=== PATIENT | male | born 1955 | race Caucasian/White ===

== ENCOUNTER 2021-09-15 17:30 | Inpatient (IN) | payer OTHER, MEDICARE, SELFPAY ==
[2021-09-15] VITALS (8 sets, daily range): BP systolic 141–167; BP diastolic 65–73; PULSE 77–88; RESP 16–20; TEMP 35.9–36.7; O2SAT 88–95; BMI 30.8; BMI 30.5
--- NOTE | 2021-09-15 17:53 | EKG12_ITS ---
Test Reason : SOB Blood Pressure : / mmHG Vent. Rate : 084 BPM Atrial Rate : 084 BPM P-R Int : 144 ms QRS Dur : 076 ms QT Int : 410 ms P-R-T Axes : 053 026 047 degrees QTc Int : 484 ms Normal sinus rhythm Prolonged QT Abnormal ECG Confirmed by CRYSTAL WHITE, MYLENE ([id number]), department editor HERIBERTO URIBE ([id number]) on 09/17/2021 1:09:59 PM Referred By: LAUREN Confirmed By:ALINA ROJAS MD
--- NOTE | 2021-09-15 17:54 | EDS_ITS ---
HPI History of Present Illness Chief Complaint: Shortness of Breath Detail of Chief Complaint: Onset of illness August 26 please read HPI Informant: patient and spouse/S.O. Onset/Context/Timing Current Severity: Mild Maximum Severity: Moderate Worsened by: Dyspnea with exertion Relieved by: Dyspnea at rest Associated Symptoms Associated Symptoms: Intermittent fever, cough productive of white sputum and read HPI Narrative Narrative: Patient is an elderly male with multiple antibiotic allergies who was sent in by his primary care physician because of an infiltrate noted on outpatient chest x-ray. Infiltrate was on the left. Patient had onset of upper respiratory symptoms August 26. He had a positive Covid test August 30. He states he felt terrible. He does have history of autoimmune disorder and was told by [employer] not to get vaccine. Within the past week he had document temperatures up to 102.3. He had a persistent productive cough of white-colored sputum. He has a remote history of smoking. He denies rhinorrhea, congestion postnasal drainage. Denies sore throat. Denies loss of taste or smell. He states he has no energy. He denies headache, visual, ocular auditory symptoms. He denies neck pain or neck stiffness. He specifically denied photophobia. He denies rash. He is on Coumadin due to blood clot 1 year ago after 5-day stay for cardiac work-up at outside facility. He was scheduled to have his PT/INR checked last week but was unable. He denies any swelling of his right lower extremity or discoloration. He has noted swelling of his feet which are worse at night because he is not as active. Patient states he is not eating well. Has had decreased p.o. intake. He does endorse dry mouth and thirst. He also reports orthostatic symptoms if he rises from a sitting or supine position quickly. Prior similar symptoms: Yes Recent Illness/Hospitalization: Yes (COVID-19 infection) [facility] Medical History (Updated 09/15/21 @ 20:[address] Luis Enrique Kelley MD) Autoimmune disorder COVID-19 virus infection Allergy/AdvReac Type Severity Reaction Status Date / Time amoxicillin [From Augmentin] Allergy Other Verified 09/15/21 17:37 cephalexin Allergy Other Verified 09/15/21 17:37 Cephalosporins Allergy Other Verified 09/15/21 17:37 clavulanic acid Allergy Other Verified 09/15/21 17:37 clindamycin Allergy Other Verified 09/15/21 17:37 levofloxacin [From Levaquin] Allergy Other Verified 09/15/21 17:37 Macrolide Antibiotics Allergy Other Verified 09/15/21 17:37 NSAIDS (Non-Steroidal Allergy Other Verified 09/15/21 17:37 Anti-Inflamma Penicillins [PCN] Allergy Other Verified 09/15/21 17:37 Quinolones Allergy Other Verified 09/15/21 17:37 sulfamethoxazole Allergy Other Verified 09/15/21 17:37 [From Bactrim] trimethoprim [From Bactrim] Allergy Other Verified 09/15/21 17:37 KETOLIDES Allergy Other Uncoded 09/15/21 17:37 Social History (Updated 09/15/21 @ 17:[address] Luis Enrique Kelley MD) household members: spouse Smoking Status: Former smoker alcohol intake: never substance use type: does not use ROS ROS ED Constitutional Constitutional ED: Reports chills and fever(s); Denies subjective, sweats or weight loss Eyes Eyes: Denies blurry vision, change in vision or diplopia ENT ENT ED: Denies ear pain, rhinorrhea or sore throat Cardiovascular Cardiovascular: Denies chest pain, orthopnea, palpitations or paroxysmal nocturnal dyspnea Respiratory/Chest Respiratory/Chest: Reports cough, dyspnea, dyspnea on exertion and sputum; Denies orthopnea or paroxysmal nocturnal dyspnea Gastrointestinal Gastrointestinal: Denies abdominal pain, diarrhea, nausea or vomiting Genitourinary Genitourinary ED: Denies dysuria, hematuria or urinary frequency Musculoskeletal Musculoskeletal: Denies arthralgias, myalgias or neck pain Integumentary Denies abscess or rash Neurologic Neurologic: Reports weakness; Denies paresthesias Psychiatric Psychiatric: Denies anxiety or depression Endocrine Endocrinology: Denies polydipsia, polyphagia or polyuria Allergic/Immunologic Allergic/Immunologic ED: Denies urticaria EXAM Physical Exam Const Vital Signs: 09/15/21 17:31 09/15/21 18:39 09/15/21 18:43 Temperature 96.7 F L Temperature Source Temporal Pulse Rate 88 Respiratory Rate 16 Respiratory Depth Normal Respiratory Pattern Normal Blood Pressure 167/73 H Blood Pressure Mean 104 Pulse Ox 93 94 Oxygen Delivery Method Room Air Nasal Cannula Nasal Cannula Oxygen Flow Rate (L/min) 2 2 Positive well nourished and well developed; Negative for obese, cachectic, contractures or unkempt General Appearance ED: well developed and NAD; Negative for unkempt, cachectic, contractures, cyanotic, diaphoretic or pallor Nutritional Appearance: Negative for cachectic or obese HEENT Reports TM's clear and dry mucous membranes; Denies moist mucous membranes HEENT Narrative: Uvula midline. There is no erythema or exudate. Mucosa is dry. Ears normal. Nares patent with no drainage. Negative for trauma or tenderness Tympanic Membrane ED: Yes TM's clear Mouth ED: Yes dry mucous membranes Mouth: dry mucous membranes Eyes PERRL and EOMs intact bilaterally General Eye ED: Negative for pale conjunctiva or scleral icterus Neck no lymphadenopathy, supple and no JVD Chest Wall inspection of chest normal and palpation of chest normal Resp normal respiratory effort and No clear to auscultation bilaterally Auscultation: rales right base and left lower Cardio regular rate, regular rhythm, S1 normal heart sound, S2 normal heart sound and no murmurs GI normal to inspection, nondistended, normoactive bowel sounds and non-tender Palpation: soft Back/Spine no CVA tenderness Cervical Spine: Negative for cervical spine tenderness Thoracic Spine / Upper Back: Negative for thoracic spinal tenderness or paraspinal muscle tenderness Extremity normal to inspection General Extremety ED: Yes edema; Negative for tenderness General Extremity: edema Neuro oriented x3, CN's II-XII intact bilaterally and no sensory deficits noted Sensorium / Orientation: alert Motor Exam: strength 5/5 throughout Psych mental status grossly normal Appearance: Negative for unkempt Skin no rashes or lesions noted and no wounds General Skin Exam: Negative for jaundice or pallor MDM MDM MDM Narrative Medical decision making narrative: Clinically patient has pneumonia on the left. There is rales. Questionable egophony with no increased vocal fremitus on the right. This may represent Covid pneumonia versus bacterial infection. Appropriate work-up was undertaken which included chest x-ray, blood work including lactate and an ambulatory pulse ox Since patient hypoxic requiring oxygen hospitalist been called. We will treat with Rocephin azithromycin. He lists many allergies. His allergies are not allergies. They are palpitation, headache and vertigo they are not IgE mediated. Therefore will treat with Rocephin and azithromycin because of concern for post Covid bacterial infection. Lab Data Attestation: I reviewed the patient's lab results. Labs: Laboratory Results - last 24 hr 09/15/21 09/15/21 09/15/21 18:30 18:30 18:30 WBC 10.0 RBC 3.76 L Hgb 11.5 L Hct 35.2 L MCV 93.6 MCH 30.6 MCHC 32.7 RDW Std Deviation 46.2 H RDW Coeff of Brooke 13.4 Plt Count 502 H MPV 9.6 Immature Gran % (Auto) 1.100 H Neut % (Auto) 60.6 Lymph % (Auto) 18.0 L [place] % (Auto) 18.0 H Eos % (Auto) 1.7 Baso % (Auto) 0.6 Absolute Neuts (auto) 6.0 Absolute Lymphs (auto) 1.80 Nucleated RBC % 0 Differential Comment SCANNED PT 31.1 H INR 3.1 Sodium 136 Potassium 3.7 Chloride 102 Carbon Dioxide 26.0 Anion Gap 8 BUN 8 Creatinine 0.87 Estim Creat Clear Calc 98.42 Est GFR (MDRD) Af Amer 113 Est GFR (MDRD) Non-Af 93 BUN/Creatinine Ratio 9.2 L Glucose 116 H Lactic Acid Calcium 8.8 Total Bilirubin 1.00 AST 39 H ALT 36 Alkaline Phosphatase 40 L Total Protein 7.7 Albumin 3.0 L Globulin 4.7 H Albumin/Globulin Ratio 0.6 L 09/15/21 18:30 WBC RBC Hgb Hct MCV MCH MCHC RDW Std Deviation RDW Coeff of Brooke Plt Count MPV Immature Gran % (Auto) Neut % (Auto) Lymph % (Auto) [place] % (Auto) Eos % (Auto) Baso % (Auto) Absolute Neuts (auto) Absolute Lymphs (auto) Nucleated RBC % Differential Comment PT INR Sodium Potassium Chloride Carbon Dioxide Anion Gap BUN Creatinine Estim Creat Clear Calc Est GFR (MDRD) Af Amer Est GFR (MDRD) Non-Af BUN/Creatinine Ratio Glucose Lactic Acid 1.1 Calcium Total Bilirubin AST ALT Alkaline Phosphatase Total Protein Albumin Globulin Albumin/Globulin Ratio Radiography Chest X-Ray - ED: 2 View and Read by ED Physician (2 view chest x-ray interpreted by me at 1913. Patient has bilateral predominantly peripheral infiltrates. This may be due to Covid also need to raise concern of bacterial infection since his symptoms started 3 weeks ago. Since he is hypoxic requiring oxygen hospitalist has been called for admissi) Diagnostic Testing: Clinical Impression(s) from Imaging Studies Chest X-Ray 09/15/21 18:41 IMPRESSION: Bilateral pneumonia. Electronically Signed: David Perez MD at 19:18 EST Reading Location ID and State: [facility] / [place] , Service support , Discharge Plan Triage Chief Complaint: Shortness of Breath ED Provider: Luis Enrique Kelley Dx/Rx/DC Orders Clinical Impression: Bilateral pneumonia, COVID-19 virus infection, Hypoxia Primary Care Provider: Andrea Singh Referrals: Andrea Singh MD [Primary Care Provider] - Disposition Disposition: Acute Care Hospital [facility]
--- NOTE | 2021-09-15 18:41 | RAD_ITS ---
STUDY: XR Chest 2 Views 09/15/2021 6:46 PM REASON FOR EXAM: Male, 66 years old. CHEST PAIN Covid recovered, rales left side COMPARISON: None TECHNIQUE: XR Chest 2 Views FINDINGS: There is no demonstrated pleural abnormality. There is bilateral infiltrate / atelectasis. Normal heart size. Normal mediastinum. Normal tanya. Prominent appearing increased interstitial lung markings. Normal visualized pulmonary arteries. There is atherosclerotic calcification of the aortic arch with tortuosity. There are diffuse degenerative changes of the visualized thoracic spine. There is degenerative osteoarthritis of the bilateral shoulders. There is no demonstrated abnormality of the visualized soft tissue structures of the upper abdomen. RAD/Chest PA and Lateral IMPRESSION: Bilateral pneumonia. Electronically Signed: David Perez MD at 19:18 EST ,
[2021-09-15 18:48] LABS: Basophil# 0.06 X10^3/uL; Basophil% 0.6 % (0-1); Eosinophil# 0.17 X10^3/uL; Eosinophils% 1.7 % (0-5); Hematocrit 35.2 % (40-54); Hemoglobin 11.5 g/dL (13.0-16.5); Mean Corp Hgb Conc 32.7 g/dL (32-36); Mean Corpuscular Hgb 30.6 pg (27.0-32.0); Mean Corpuscular Volume 93.6 fL (80-94); Mean Platelet Vol. 9.6 fl (6.2-12.0); NRBC Flagged by Analyzer 0 % (0-5); Neutrophil # 6.04 X10^3/uL (2.7-7.7); Neutrophil % 60.6 % (47-70); POSITIVE DIFFERENTIAL YES; POSITIVE MORPHOLOGY YES; Platelet Count 502 K/mm3 (150-450); RBC Distribution Width CV 13.4 % (11.6-14.6); RBC Distribution Width SD 46.2 fl (35.1-43.9); Red Blood Count 3.76 M/mm3 (4.6-6.2)
[2021-09-15 19:02] LABS: Differential Indicated SCAN CRITERIA MET
[2021-09-15 19:06] LABS: ALB/GLOB Ratio 0.6 RATIO (0.9-2.4); AST(SGOT) 39 U/L (15-37); Alanine Aminotransfer ALT/SGPT 36 U/L (16-61); Alkaline Phosphatase 40 U/L (45-117); Anion Gap 8 (5-15); BUN 8 mg/dL (7-18); BUN/Creat Ratio 9.2 RATIO (10-20); Calcium,Total 8.8 mg/dL (8.5-10.1); Chloride 102 mmol/L (98-107); Creatinine, Serum 0.87 mg/dL (0.70-1.30); EST Glomerular Filtration Rate 93 mL/min (>60); Est Glom Filt Rate - Afr Amer 113 mL/min (>60); Estimated Creatinine Clearance 98.42 ml/min; Globulin 4.7 g/dL (2.2-4.2); Glucose 116 mg/dL (74-106); Potassium 3.7 mmol/L (3.5-5.1); Protein, Total 7.7 g/dL (6.4-8.2); Sodium Level 136 mmol/L (136-145)
[2021-09-15 19:10] LABS: Lactic Acid 1.1 mmol/L (0.4-1.9)
[2021-09-15 19:16] LABS: International Normalized Ratio 3.1; Prothrombin Time (Protime)PT. 31.1 SECONDS (11.7-14.9)
[2021-09-15 19:35] LABS: Differential Comment SCANNED
--- NOTE | 2021-09-15 20:01 | HP.PCM.HOS_ITS ---
HPI - General General Date of Admission: 09/15/21 Date of Service: 09/15/21 Chief Complaint: COVID symptoms, worsening. 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 Patient has poor recent oral intake and does feel lightheaded and dizzy when he gets up from a seated or supine position. He notes that his has also had Covid and has been hospitalized. Only symptoms he notes through the entire course has been fever, chills, cough and dyspnea. Work-up in the ED included T 96.7, heart rate 88, BP 167/73, respiratory rate 16, 88-93 on room air, worse with exertion, improved to 94% on 2 L nasal cannula, CBC with WC 10, hemoglobin 11.5, platelet 502 without marked shift, INR 3.1, CMP with glucose 116, AST/ALT 39/36, alk phos 40 otherwise not marked appearing, lactic acid 1.1, chest x-ray evidence of bilateral pneumonia, EKG with SR without acute evidence of ischemia. In the ED patient administered IV rocephin, azithromycin, decadron. [facility] Medical History Allergic rhinitis Autoimmune disorder COVID-19 virus infection DVT (deep venous thrombosis) Obesity Smoking history Home Medications dapsone 100 mg PO DAILY 09/15/21 [History Last Taken 09/15/21] warfarin 2.5 mg PO MOFR 09/15/21 [History Last Taken 09/13/21] warfarin 5 mg PO SUTUWETHSA 09/15/21 [History Last Taken 09/13/21] Allergy/AdvReac Type Severity Reaction Status Date / Time amoxicillin [From Augmentin] Allergy Other Verified 09/15/21 17:37 cephalexin Allergy Other Verified 09/15/21 17:37 Cephalosporins Allergy Other Verified 09/15/21 17:37 clavulanic acid Allergy Other Verified 09/15/21 17:37 clindamycin Allergy Other Verified 09/15/21 17:37 levofloxacin [From Levaquin] Allergy Other Verified 09/15/21 17:37 Macrolide Antibiotics Allergy Other Verified 09/15/21 17:37 NSAIDS (Non-Steroidal Allergy Other Verified 09/15/21 17:37 Anti-Inflamma Penicillins [PCN] Allergy Other Verified 09/15/21 17:37 Quinolones Allergy Other Verified 09/15/21 17:37 sulfamethoxazole Allergy Other Verified 09/15/21 17:37 [From Bactrim] trimethoprim [From Bactrim] Allergy Other Verified 09/15/21 17:37 KETOLIDES Allergy Other Uncoded 09/15/21 17:37 Family History (Updated 09/15/21 @ 23:[address] Kalina Lazaro MD) Mother Diabetes Father Kidney disease Surgical History (Updated 09/15/21 @ 23:[address] Kalina Lazaro MD) No history of previous surgery Social History (Updated 09/15/21 @ 23:[address] Kalina Lazaro MD) household members: spouse Smoking Status: Former smoker how long ago did patient quit smoking: Quit 13-15 yrs prior, smoked 1 pk q 3-4 days since 20 y/o. alcohol intake: never substance use type: does not use ROS ROS Narrative Admission Review of Systems: CONSTITUTIONAL: No weight loss, + fever, chills, weakness or fatigue. HEENT: Eyes: No visual loss, blurred vision, double vision or yellow sclerae. Ears, Nose, Throat: No hearing loss, sneezing. SKIN: No rash or itching, lesions, wounds. CARDIOVASCULAR: No chest pain, chest pressure or chest discomfort, palpitations, edema, orthopnea, syncopal events. RESPIRATORY: + Shortness of breath, cough, mild sputum, No wheezing, hemoptysis. GASTROINTESTINAL: No anorexia, nausea, vomiting, diarrhea, abdominal pain, melena, BRBPR. GENITOURINARY: No dysuria, frequency, urgency or retention. NEUROLOGICAL: + LH, dizziness, No headache, syncope, paralysis, ataxia, numbness or tingling in the extremities, focal weakness, change in bowel or bladder control, seizure. MUSCULOSKELETAL: + Muscle, back pain, joint pain or stiffness. HEMATOLOGIC: No anemia, bleeding or bruising. LYMPHATICS: No enlarged nodes. No history of splenectomy. PSYCHIATRIC: No history of depression or anxiety. ENDOCRINOLOGIC: No reports of sweating, cold or heat intolerance. No polyuria or polydipsia. ALLERGIES: No history of asthma, hives, eczema or rhinitis. Vital Signs Vital Signs Vital Signs: 09/15/21 17:31 09/15/21 18:39 09/15/21 18:43 Temperature 96.7 F L Temperature Source Temporal Pulse Rate 88 Respiratory Rate 16 Respiratory Depth Normal Respiratory Pattern Normal Blood Pressure 167/73 H Blood Pressure Mean 104 Pulse Ox 93 94 Oxygen Delivery Method Room Air Nasal Cannula Nasal Cannula Oxygen Flow Rate (L/min) 2 2 Weight Weight: 240 lb Body Mass Index (BMI) 30.8 Physical Exam Narrative Physical Examination: General: Awake, alert, oriented x 3 and cooperative, seated upright in the ED bed, fatigued and ill-appearing. Skin: Normal color, normal turgor, no icterus, no cyanosis. HEENT: AT/NC, EOMI, PERRLA, moderately dry MM, no carotid bruits or JVD noted. Lungs: Diffusely diminished, greater bases, no evidence of distress, no rales, ronchi or wheezing. Heart: Regular rate and regular rhythm; no gallop, rub audible. Abdomen: Soft, obese, NTTP, ND, distant hyperactive bowel sounds, no HSM. Extremities: No cyanosis, clubbing, or edema. Neurological: Patient awake, alert, oriented as noted, cognitive function intact; pupils equally reactive to light and accommodation, cranial nerves II- XII grossly normal, moving all 4 extremities, no focal deficits, strength severely global decrease secondary to acute presentation. Psychiatric: Affect appears fatigued, ill-appearing, no acute evidence of depressive or anxiety feelings. Results Lab / Micro Data Result Diagrams: 09/15/21 18:30 09/15/21 18:30 Labs: Laboratory Results - last 24 hr 09/15/21 18:30: WBC 10.0, RBC 3.76 L, Hgb 11.5 L, Hct 35.2 L, MCV 93.6, MCH 30.6, MCHC 32.7, RDW Std Deviation 46.2 H, RDW Coeff of Brooke 13.4, Plt Count 502 H, MPV 9.6, Immature Gran % (Auto) 1.100 H, Neut % (Auto) 60.6, Lymph % (Auto) 18.0 L, [place] % (Auto) 18.0 H, Eos % (Auto) 1.7, Baso % (Auto) 0.6, Absolute Neuts (auto) 6.0, Absolute Lymphs (auto) 1.80, Nucleated RBC % 0, Differential Comment SCANNED 09/15/21 18:30: PT 31.1 H, INR 3.1 09/15/21 18:30: Sodium 136, Potassium 3.7, Chloride 102, Carbon Dioxide 26.0, A nion Gap 8, BUN 8, Creatinine 0.87, Estim Creat Clear Calc 98.42, Est GFR (MDRD) Af Amer 113, Est GFR (MDRD) Non-Af 93, BUN/Creatinine Ratio 9.2 L, Glucose 116 H , Calcium 8.8, Total Bilirubin 1.00, AST 39 H, ALT 36, Alkaline Phosphatase 40 L , Total Protein 7.7, Albumin 3.0 L, Globulin 4.7 H, Albumin/Globulin Ratio 0.6 L 09/15/21 18:30: Lactic Acid 1.1 Radiology Impression Chest X-Ray 09/15/21 18:41 IMPRESSION: Bilateral pneumonia. Electronically Signed: David Perez MD at 19:18 EST Reading Location ID and State: 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 #1. Acute Hypoxia secondary to Acute Bilateral Pneumonia secondary to Acute Viral Syndrome, COVID-19, some concern for possible concurrent superimposed ashly terial infection per ED physician: Will admit to the [place], maintain on COVID precautions given severity will request 20 days quarantine from onset 08/26/21 symptoms which would be completed 09/16/20, will maintain on oxygen with wean as tolerated to room air, PRN albuterol, HOB, IS parameters w/ pending sputum cultures and urine antigens, will obtain D-dimer, procalcitonin, CRP, CPK, Ferritin, LDH, trop and BNP, continue supportive care including q 2 hour turning including prone given no prone bed availability and judicious hydration, closely monitor for worsening status for ARDS and multiorgan failure, will initiate and continue IV decadron x 10 doses, given presentation timeline > 10 days from onset not candidate for remdesivir. If lab findings and further evaluation do present concern for superimposed bacterial infection will add IV antibiotic therapy, was administered dose in the ED. If respiratory status worsens and patient requires airvo or BIPAP transition will initiate barcitinib regimen additionally with ID involvement. #2. Autoimmune disorder: Unclear type, following w/ Rheumatology, on chronic dapsone which will be continued. #3. 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 #4. Obesity: Weight loss and lifestyle changes encouraged. #5. Former tobacco use: Encourage continued tobacco cessation. #6. DVT prophylaxis: SCDs, continue patient home Coumadin with INR trending. #7. CODE status: Given presentation with hypoxia with Covid pneumonia and unvaccinated status, discussed CODE status at length including difference between FULL code, DNR-CCA and DNR-CC status. Following discussions about the differences in these status, requested Full Code. Amenable to airvo, BIPAP, antiviral medications if appropriate. Advanced Care Planning Face to Face Time: 16 minutes. Charges/Coding Visit Charges Inpatient E&M: 11635 Init Hosp L3 Procedures Hospitalists Procedures: 16547 Advncd Care Plan 30 Min
[2021-09-15] MEDS: dexAMETHasone 4 MG Tablet 6 MG PO (20:12)
--- NOTE | 2021-09-15 20:30 | CASEMGMT ---
PERICO CM to room to meet with patient for initial transition planning/care coordination assessment. RN CM introduced self and role at [facility]. Patient voices understanding and consents to assessment at this time. Patient is alert and oriented, sitting up on ER cart with oxygen 2LPM per NC in no apparent distress and answers all questions appropriately. Care providers, pharmacy, and demographics verified/updated at this time. PCP: Andrea Singh Specialists: Dr. Mckeon- dermatology ([facility]) Preferred Pharmacy: [facility] [place] Insurance: [employer] Prescription Benefit: yes Living Will/HPOA: Patient denies having a living will or HPOA. LNOK: Gilma Dunne Living Arrangements: Patient lives with in two story house with 3 steps to enter the home and a handrail present. Patient states independent with ADLs prior to hospitalization. Smoking/ETOH: Former smoker (quit 15 years ago), denies ETOH or drug use Transportation: Patient drives self and denies transportation concerns. DME/HHC/SNF: Patient typically ambulates independently without the use of an assistive device. Patient has a pulse oximetry monitor at home. Denies further DME in the home. Denies previous HHC or SNF stays. Patient reports onset of COVID-like symptoms on 08/26 or 08/27/2021 with a positive home COVID test on 08/31/21. Patient is unvaccinated against COVID due to autoimmune disease. Patient's is currently hospitalized with COVID at [facility] in [place] (as of 09/15). Patient has no preference for DME company if home oxygen were to be needed at time of discharge. Patient has no concerns with going home at time of discharge. CM to follow for any discharge planning/needs. Patient voices no concerns/needs at this time. Advised patient to ask for CM if any questions/concerns/needs arise. Voices understanding. Plan: home
[2021-09-15 21:25] LABS: D-Dimer Quantitative (DVT/PE) 0.48 FEU/ug/m (0.27-0.49)
[2021-09-15 21:33] LABS: BNP,B-Type NATRIURETIC PEPTIDE 37.8 pg/mL (0-100)
[2021-09-15] MEDS: 0.9% Normal Saline 1,000 ML 100 ML IV (21:35)
[2021-09-15 21:42] LABS: Procalcitonin 0.18 ng/mL (0.00-0.09)
[2021-09-15 21:51] LABS: Ferritin 1379 ng/mL (26-388); LDH 423 U/L (87-241); Troponin-I HS 270 pg/mL (3.0-78.0)
[2021-09-16] VITALS (12 sets, daily range): BP systolic 106–156; BP diastolic 59–79; PULSE 67–97; RESP 18–20; TEMP 35.9–36.4; O2SAT 92–95
[2021-09-16 00:39] LABS: Magnesium 2.4 mg/dL (1.6-2.6); Troponin-I HS 268 pg/mL (3.0-78.0)
--- NOTE | 2021-09-16 02:06 | ECHOD_ITS ---
Reason For Study: ELEVATED TROPONIN Procedure This was a 2D Doppler, Color Flow transthoracic echocardiogram. Exam performed portable in patient room. Left Ventricle Normal LV size. sigmoid septal hypertrophy. The estimated ejection fraction is 60 %. No evidence for diastolic dysfunction. No regional wall motion abnormalities noted. Right Ventricle Normal RV size. Normal systolic function. Atria The left atrium is mildly enlarged. Normal right atrium. No doppler evidence for ASD. Mitral Valve There is no mitral valve stenosis. No mitral valve insufficiency. Tricuspid Valve No significant tricuspid stenosis. Unable to estimate RV systolic pressure due to insufficient tricuspid regurgitant envelope. Trivial tricuspid valve insufficiency. Aortic Valve Trisinus/trileaflet aortic valve. There is no aortic stenosis. No aortic valve insufficiency. Pulmonic Valve There is no pulmonic valvular stenosis. No pulmonic valve insufficiency. Great Vessels Normal aortic root. Pericardium/Pleural No pericardial effusion. MMode/2D Measurements & Calculations LVIDd: 4.5 cm IVSd: 2.1 cm Ao root diam: 3.5 cm LVIDs: 3.1 cm LVPWd: 1.2 cm RVDd: 4.0 cm FS: 30.5 % LAV(MOD-bp): 87.8 ml LA A4 area: 26.6 cm2 LA dimension(2D): 3.3 cm LAV(MOD-bp) Indexed: 37.6 ml/m2 LAV(MOD-sp2): 84.2 ml LAV(MOD-sp4): 89.7 ml RA A4 area: 20.3 cm2 Time Measurements MV dec time: 0.17 sec Doppler Measurements & Calculations MV E max devante: 98.6 cm/sec Lat Peak E' Devante: 11.0 cm/sec MV V2 max: 165.8 cm/sec MV A max devante: 150.7 cm/sec E/E' lat: 9.0 MV max P.0 mmHg MV E/A: 0.65 MV V2 mean: 108.7 cm/sec MV mean P.3 mmHg MV V2 VTI: 29.7 cm Ao V2 max: 257.0 cm/sec PA V2 max: 155.0 cm/sec TR max devante: 264.1 cm/sec Ao max P.4 mmHg TR max P.9 mmHg Ao V2 mean: 200.5 cm/sec Ao mean P.4 mmHg Ao V2 VTI: 51.5 cm ECHO/Echo Complete Interpretation Summary The estimated ejection fraction is 60 %. No evidence for diastolic dysfunction. The left atrium is mildly enlarged. Ordering Physician: Kalina Lazaro Referring Physician: Andrea Singh Performed By: Nikki Segal, QIAN, RVT
[2021-09-16] MEDS: guaiFENesin 10 ML UDC (200MG/10ML) 20 ML PO (02:39)
[2021-09-16 02:50] LABS: Troponin-I HS 256 pg/mL (3.0-78.0)
[2021-09-16 05:42] LABS: Absolute Lymphocyte Count 0.81 X10^3/uL (0.83-4.51); Absolute Neutrophil Count 6.7 X10^3/uL (2.0-7.7); Basophil# 0.01 X10^3/uL; Basophil% 0.1 % (0-1); Hematocrit 33.4 % (40-54); Hemoglobin 10.7 g/dL (13.0-16.5); Lymphocyte # 0.81 X10^3/ul (0.83-4.51); Lymphocyte % 10.3 % (19-41); Mean Corpuscular Hgb 30.7 pg (27.0-32.0); Mean Platelet Vol. 9.4 fl (6.2-12.0); Monocyte# 0.34 X10^3/uL; Monocyte% 4.3 % (0-10); NRBC Flagged by Analyzer 0 % (0-5); Neutrophil # 6.68 X10^3/uL (2.7-7.7); Neutrophil % 84.5 % (47-70); POSITIVE MORPHOLOGY YES; Platelet Count 464 K/mm3 (150-450); RBC Distribution Width CV 13.6 % (11.6-14.6); RBC Distribution Width SD 47.6 fl (35.1-43.9); Red Blood Count 3.48 M/mm3 (4.6-6.2); White Blood Count 7.9 K/mm3 (4.4-11.0)
[2021-09-16 05:51] LABS: Differential Indicated SCAN CRITERIA MET
[2021-09-16 06:03] LABS: ALB/GLOB Ratio 0.6 RATIO (0.9-2.4); AST(SGOT) 30 U/L (15-37); Alanine Aminotransfer ALT/SGPT 33 U/L (16-61); Albumin, Serum 2.6 g/dL (3.2-5.0); Alkaline Phosphatase 37 U/L (45-117); Anion Gap 3 (5-15); BUN 6 mg/dL (7-18); BUN/Creat Ratio 8.1 RATIO (10-20); Calcium,Total 8.6 mg/dL (8.5-10.1); Chloride 108 mmol/L (98-107); Cholesterol 123 mg/dL (200); Creatinine, Serum 0.74 mg/dL (0.70-1.30); EST Glomerular Filtration Rate 112 mL/min (>60); Est Glom Filt Rate - Afr Amer 136 mL/min (>60); Estimated Creatinine Clearance 115.71 ml/min; Globulin 4.5 g/dL (2.2-4.2); Glucose 178 mg/dL (74-106); High Density Lipoprotein 27 mg/dL; Potassium 5.5 mmol/L (3.5-5.1); Protein, Total 7.1 g/dL (6.4-8.2); Sodium Level 139 mmol/L (136-145); Triglycerides 73 mg/dL; Troponin-I HS 233 pg/mL (3.0-78.0); Very Low Density Lipoprotein 15 mg/dL (5-40)
[2021-09-16 06:08] LABS: International Normalized Ratio 2.9; Prothrombin Time (Protime)PT. 29.7 SECONDS (11.7-14.9)
--- NOTE | 2021-09-16 07:14 | PN.HOSP_ITS ---
Subjective Subjective Follow-up for acute hypoxic respiratory failure secondary to bilateral COVID-19 pneumonia. Patient admitted with shortness of breath, cough, fever, 102.3 within the past week. Patient has symptom onset with URI on August 26 and positive Covid test on August 31. Persistent productive of white-colored sputum. Remote history of smoking. Patient stated he quit about 10 years ago. Prior to that 1 pack used to last 4 days. Started in teenage total smoking recently less than 10 years. Patient stated he could not get vaccination because autoimmune disease. Denies chest pain or tightness. Objective Data Objective Data Vital Signs: Vital Signs Temp Pulse Resp BP Pulse Ox 97.3 F L 71 20 H 106/79 94 09/16/21 02:55 09/16/21 06:00 09/16/21 02:55 09/16/21 02:55 09/16/21 02:55 Oxygen Flow Rate (L/min) 2 Oxygen Delivery Method Nasal Cannula Weight: 235 lb 14.314 oz Body Mass Index (BMI) 30.5 Intake & Output: Intake and Output for Last 24 Hours 09/14/21 09/15/21 09/16/21 23:59 23:59 23:59 Intake Total 805 / 805 400 / 400 Output Total 750 / 750 Balance 805 / 805 -350 / -350 Lab / Micro Data Result Diagrams: 09/16/21 05:20 09/16/21 05:20 Labs: Laboratory Results - last 24 hr 09/15/21 18:30: WBC 10.0, RBC 3.76 L, Hgb 11.5 L, Hct 35.2 L, MCV 93.6, MCH 30.6, MCHC 32.7, RDW Std Deviation 46.2 H, RDW Coeff of Brooke 13.4, Plt Count 502 H, MPV 9.6, Immature Gran % (Auto) 1.100 H, Neut % (Auto) 60.6, Lymph % (Auto) 18.0 L, [place] % (Auto) 18.0 H, Eos % (Auto) 1.7, Baso % (Auto) 0.6, Absolute Neuts (auto) 6.0, Absolute Lymphs (auto) 1.80, Nucleated RBC % 0, Differential Comment SCANNED 09/15/21 18:30: PT 31.1 H, INR 3.1 09/15/21 18:30: Sodium 136, Potassium 3.7, Chloride 102, Carbon Dioxide 26.0, Anion Gap 8, BUN 8, Creatinine 0.87, Estim Creat Clear Calc 98.42, Est GFR (MDRD) Af Amer 113, Est GFR (MDRD) Non-Af 93, BUN/Creatinine Ratio 9.2 L, Glucose 116 H, Calcium 8.8, Total Bilirubin 1.00, AST 39 H, ALT 36, Alkaline Phosphatase 40 L, Total Protein 7.7, Albumin 3.0 L, Globulin 4.7 H, Albumin/Globulin Ratio 0.6 L 09/15/21 18:30: Lactic Acid 1.1 09/15/21 18:30: D-Dimer Quant (PE/DVT) 0.48 09/15/21 18:30: Ferritin 1379 H, Lactate Dehydrogenase 423 H, Troponin I High Sens 270 H*, C-React Prot Ext Range 71.60 H 09/15/21 18:30: B-Natriuretic Peptide 37.8 09/15/21 18:30: Procalcitonin 0.18 H 09/15/21 23:45: Magnesium 2.4, Troponin I High Sens 268 H* 09/16/21 01:54: Troponin I High Sens 256 H* 09/16/21 05:20: WBC 7.9, RBC 3.48 L, Hgb 10.7 L, Hct 33.4 L, MCV 96.0 H, MCH 30.7, MCHC 32.0, RDW Std Deviation 47.6 H, RDW Coeff of Brooke 13.6, Plt Count 464 H, MPV 9.4, Immature Gran % (Auto) 0.800, Neut % (Auto) 84.5 H, Lymph % (Auto) 10.3 L, [place] % (Auto) 4.3, Eos % (Auto) 0.0, Baso % (Auto) 0.1, Absolute Neuts (auto) 6.7, Absolute Lymphs (auto) 0.81 L, Nucleated RBC % 0 09/16/21 05:20: PT 29.7 H, INR 2.9 09/16/21 05:20: Sodium 139, Potassium 5.5 H, Chloride 108 H, Carbon Dioxide 28.0, Anion Gap 3 L, BUN 6 L, Creatinine 0.74, Estim Creat Clear Calc 115.71, Est GFR (MDRD) Af Amer 136, Est GFR (MDRD) Non-Af 112, BUN/Creatinine Ratio 8.1 L, Glucose 178 H, Calcium 8.6, Total Bilirubin 0.60, AST 30, ALT 33, Alkaline Phosphatase 37 L, Troponin I High Sens 233 H*, Total Protein 7.1, Albumin 2.6 L, Globulin 4.5 H, Albumin/Globulin Ratio 0.6 L, Triglycerides 73, Cholesterol 123, LDL Cholesterol 81, VLDL Cholesterol 15, HDL Cholesterol 27 L Micro: Microbiology 09/15/21 21:53 Urine, Clean Catch Legionella Antigen - Final 09/15/21 21:53 Urine, Clean Catch Streptococcus pneumoniae Antigen (M - Final Radiography Diagnostic Testing: Radiology Impression Chest X-Ray 09/15/21 18:41 IMPRESSION: Bilateral pneumonia. Electronically Signed: David Perez MD at 19:18 EST Reading Location ID and State: [address] [place] [address] , Service support , Physical Exam Narrative Afebrile since admission On 2 L of oxygen Physical exam: General: Alert, Oriented x3, Cooperative HEENT: Atraumatic, PERRLA, EOMI, Normocephalic Oral: No Gingival or Mucosal Lesions/ Ulcerations Neck: Supple, No JVD, Negative Carotid Bruits Lungs: Air entry diminished in bilateral lung bases. No crepitation/rhonchi Cardiovascular: Regular rate, Regular Rhythm, Normal S1, Normal S2, grade 3/6 systolic murmur over cardiac apex and LLSB Abdomen: Bowel Sounds Present, Soft, Non Tender, Non-Distended : No renal angle tenderness. No suprapubic tenderness. Extremities: No edema, Capillary Refill Less than 3 Seconds Skin: No rashes, No breakdown Musculoskeletal: No Tenderness to Palpation of Joints or Extremities Neurological: Cranial nerves II-XII grossly intact, DTR 2+/4 and Symmetrical, Neuro grossly intact Psych/Mental Status: Normal Affect, Appropriate. Assessment & Plan Assessment/Plan (1) Bilateral pneumonia: QUALIFIERS: Lung location: unspecified part of lung Pneumonia type: due to unspecified organism Qualified Code(s): J18.9 - Pneumonia, unspecified organism (2) COVID-19 virus infection: (3) Hypoxia: PLAN: The patient is a 66 y/o M is being admitted with COVID-19 symptoms of shortness of breath, cough, hypoxia, fever and dyspnea at rest. Symptom onset on 08/26-02/2022, tested positive on August 31. Patient had chest x-ray by PCP showed a small pneumonia and low pulse ox cyst hypoxia #1. Acute Hypoxia secondary to Acute Bilateral Pneumonia secondary to Acute Viral Syndrome, COVID-19: Patient is being admitted on [facility] floor. Chest x- ray individually reviewed and shows bilateral interstitial and infiltrates and symptomatology consistent with bilateral pneumonia. Urinary antigens are negative. Sputum culture pending. D-dimer normal. INR 2.9 on Coumadin. Troponin, CRP, procalcitonin elevated. Dexamethasone. Out of time window for remdesivir. If patient further he spikes temperature, will consider antibiotics for coverage of secondary bacterial infection. The patient is out of isolation. #2. Elevated troponin possible type II demand ischemia/non-STEMI: Patient is having 2D echo. I discussed with learning strategist. Patient had echo probably by PCP about 1 to 2 years ago when he had a PE. He was told that he has enlarged/muscular heart probably referring to LVH. 3 autoimmune disorder: Patient states he gets blood blister on the inner aspect of mouth. Exact diagnosis unclear. 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 On chronic dapsone, continued. 4. 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 INR therapeutic. Monitor INR daily. 5. Obesity: Weight loss and lifestyle changes encouraged. 6. Former tobacco use: Encourage continued tobacco cessation. #6. CODE status: Full Code. Amenable to airvo, BIPAP, antiviral medications if appropriate. Advanced Care Planning Face to Face Time: 16 minutes. Charges/Coding Visit Charges Inpatient E&M: 83985 Subs Hosp L2
[2021-09-16 08:01] LABS: Magnesium 2.4 mg/dL (1.6-2.6); Phosphorus 2.5 mg/dL (2.5-4.9)
[2021-09-16] MEDS: 0.9% Saline Lock 10 ML Syringe IV (08:24)
[2021-09-16] MEDS: Aspirin 81 MG TAB.CHEW PO (08:24)
[2021-09-16] MEDS: dexAMETHasone 4 MG/ML Vial 6 MG IV (08:24)
--- NOTE | 2021-09-16 08:28 | PCS.PANDOC ---
PANDEMIC DOCUMENTATION INITIATED: Date: 04/05/2021 Time: 190
--- NOTE | 2021-09-16 11:59 | CON.PCM.CA_ITS ---
Assessment & Plan Assessment/Plan (1) Elevated troponin: PLAN: Likely related to patient's hypoxemia. His 2D echo was reviewed and he has no significant regional wall motion abnormalities. At this time patient does not need any further cardiac work-up as an inpatient. As an outpatient he can be scheduled for a stress test when he is recovered from his Covid pneumonia. It will be reasonable to get the patient on aspirin in addition to his Coumadin. We will sign off at this time. If we can be of any further as sistance please let us know. Thank you very much for letting us participate in the care of this patient. HPI Consult Data Date of Consult: 09/16/21 HPI Narrative HPI Narrative: RAKESH ROBERSON, is a 66 M who presents with dyspnea and hypoxemia. He denies any chest pain. Patient symptoms started around August 26 and he was diagnosed with Covid at that time. He has been diagnosed with Covid pneumonia. He did not have any symptoms prior to that. Review of systems: All systems reviewed. All else is negative except as in HPI. PFSH Medical History Allergic rhinitis Autoimmune disorder COVID-19 virus infection DVT (deep venous thrombosis) Obesity Smoking history Home Medications dapsone 100 mg PO DAILY 09/15/21 [History Last Taken 09/15/21] warfarin 2.5 mg PO MOFR 09/15/21 [History Last Taken 09/13/21] warfarin 5 mg PO SUTUWETHSA 09/15/21 [History Last Taken 09/13/21] Allergy/AdvReac Type Severity Reaction Status Date / Time amoxicillin [From Augmentin] Allergy Other Verified 09/15/21 17:37 cephalexin Allergy Other Verified 09/15/21 17:37 Cephalosporins Allergy Other Verified 09/15/21 17:37 clavulanic acid Allergy Other Verified 09/15/21 17:37 clindamycin Allergy Other Verified 09/15/21 17:37 levofloxacin [From Levaquin] Allergy Other Verified 09/15/21 17:37 Macrolide Antibiotics Allergy Other Verified 09/15/21 17:37 NSAIDS (Non-Steroidal Allergy Other Verified 09/15/21 17:37 Anti-Inflamma Penicillins [PCN] Allergy Other Verified 09/15/21 17:37 Quinolones Allergy Other Verified 09/15/21 17:37 sulfamethoxazole Allergy Other Verified 09/15/21 17:37 [From Bactrim] trimethoprim [From Bactrim] Allergy Other Verified 09/15/21 17:37 KETOLIDES Allergy Other Uncoded 09/15/21 17:37 Family History (Updated 09/15/21 @ 23:[address] Kalina Lazaro MD) Mother Diabetes Father Kidney disease Surgical History (Updated 09/15/21 @ 23:[address] Kalina Lazaro MD) No history of previous surgery Social History (Updated 09/15/21 @ 23:[address] Kalina Lazaro MD) household members: spouse Smoking Status: Former smoker how long ago did patient quit smoking: Quit 13-15 yrs prior, smoked 1 pk q 3-4 days since 20 y/o. alcohol intake: never substance use type: does not use Physical Exam Const alert and oriented x3 Orientation / Consciousness: awake HEENT normocephalic Eyes no scleral icterus Resp normal respiratory effort Risk Stratification Risk Stratification Applicable: No Charges/Coding Visit Charges Inpatient E&M: 52333 Init Hosp L2 Objective Data Vital Signs: Vital Signs Temp Pulse Resp BP Pulse Ox 96.6 F L 79 18 131/64 H 95 09/16/21 09:16 09/16/21 09:16 09/16/21 09:16 09/16/21 09:16 09/16/21 09:16 Oxygen Flow Rate (L/min) 2 Oxygen Delivery Method Nasal Cannula Weight: 235 lb 14.314 oz Body Mass Index (BMI) 30.5 Intake & Output: Intake and Output for Last 24 Hours 09/14/21 09/15/21 09/16/21 23:59 23:59 23:59 Intake Total 805 / 805 1400 / 1400 Output Total 750 / 750 Balance 805 / 805 650 / 650 Lab / Micro Data Result Diagrams: 09/16/21 05:20 09/16/21 05:20 Labs: Laboratory Results - last 24 hr 09/15/21 18:30: WBC 10.0, RBC 3.76 L, Hgb 11.5 L, Hct 35.2 L, MCV 93.6, MCH 30.6, MCHC 32.7, RDW Std Deviation 46.2 H, RDW Coeff of Brooke 13.4, Plt Count 502 H, MPV 9.6, Immature Gran % (Auto) 1.100 H, Neut % (Auto) 60.6, Lymph % (Auto) 18.0 L, [place] % (Auto) 18.0 H, Eos % (Auto) 1.7, Baso % (Auto) 0.6, Absolute Neuts (auto) 6.0, Absolute Lymphs (auto) 1.80, Nucleated RBC % 0, Differential Comment SCANNED 09/15/21 18:30: PT 31.1 H, INR 3.1 09/15/21 18:30: Sodium 136, Potassium 3.7, Chloride 102, Carbon Dioxide 26.0, Anion Gap 8, BUN 8, Creatinine 0.87, Estim Creat Clear Calc 98.42, Est GFR (MDRD) Af Amer 113, Est GFR (MDRD) Non-Af 93, BUN/Creatinine Ratio 9.2 L, Glucose 116 H, Calcium 8.8, Total Bilirubin 1.00, AST 39 H, ALT 36, Alkaline Phosphatase 40 L, Total Protein 7.7, Albumin 3.0 L, Globulin 4.7 H, Albumin/Globulin Ratio 0.6 L 09/15/21 18:30: Lactic Acid 1.1 09/15/21 18:30: D-Dimer Quant (PE/DVT) 0.48 09/15/21 18:30: Ferritin 1379 H, Lactate Dehydrogenase 423 H, Troponin I High Sens 270 H*, C-React Prot Ext Range 71.60 H 09/15/21 18:30: B-Natriuretic Peptide 37.8 09/15/21 18:30: Procalcitonin 0.18 H 09/15/21 23:45: Magnesium 2.4, Troponin I High Sens 268 H* 09/16/21 01:54: Troponin I High Sens 256 H* 09/16/21 05:20: WBC 7.9, RBC 3.48 L, Hgb 10.7 L, Hct 33.4 L, MCV 96.0 H, MCH 30.7, MCHC 32.0, RDW Std Deviation 47.6 H, RDW Coeff of Brooke 13.6, Plt Count 464 H, MPV 9.4, Immature Gran % (Auto) 0.800, Neut % (Auto) 84.5 H, Lymph % (Auto) 10.3 L, [place] % (Auto) 4.3, Eos % (Auto) 0.0, Baso % (Auto) 0.1, Absolute Neuts (auto) 6.7, Absolute Lymphs (auto) 0.81 L, Nucleated RBC % 0 09/16/21 05:20: PT 29.7 H, INR 2.9 09/16/21 05:20: Sodium 139, Potassium 5.5 H, Chloride 108 H, Carbon Dioxide 28.0, Anion Gap 3 L, BUN 6 L, Creatinine 0.74, Estim Creat Clear Calc 115.71, Est GFR (MDRD) Af Amer 136, Est GFR (MDRD) Non-Af 112, BUN/Creatinine Ratio 8.1 L, Glucose 178 H, Calcium 8.6, Total Bilirubin 0.60, AST 30, ALT 33, Alkaline Phosphatase 37 L, Troponin I High Sens 233 H*, Total Protein 7.1, Albumin 2.6 L, Globulin 4.5 H, Albumin/Globulin Ratio 0.6 L, Triglycerides 73, Cholesterol 123, LDL Cholesterol 81, VLDL Cholesterol 15, HDL Cholesterol 27 L 09/16/21 05:20: Phosphorus 2.5, Magnesium 2.4 Micro: Microbiology 09/15/21 21:53 Urine, Clean Catch Legionella Antigen - Final 09/15/21 21:53 Urine, Clean Catch Streptococcus pneumoniae Antigen (M - Final Cardiology Labs/Tests 09/15/21 18:30: WBC 10.0, RBC 3.76 L, Hgb 11.5 L, Hct 35.2 L, MCV 93.6, MCH 30.6, MCHC 32.7, Plt Count 502 H, MPV 9.6, Immature Gran % (Auto) 1.100 H, Neut % (Auto) 60.6, Lymph % (Auto) 18.0 L, [place] % (Auto) 18.0 H, Eos % (Auto) 1.7, Baso % (Auto) 0.6, Absolute Neuts (auto) 6.0, Nucleated RBC % 0 09/15/21 18:30: PT 31.1 H, INR 3.1 09/15/21 18:30: Sodium 136, Potassium 3.7, Chloride 102, Carbon Dioxide 26.0, Anion Gap 8, BUN 8, Creatinine 0.87, Est GFR (MDRD) Af Amer 113, Est GFR (MDRD) Non-Af 93, BUN/Creatinine Ratio 9.2 L, Glucose 116 H, Calcium 8.8, Total Bilirubin 1.00 09/15/21 18:30: Lactic Acid 1.1 09/15/21 18:30: D-Dimer Quant (PE/DVT) 0.48 09/15/21 18:30: Ferritin 1379 H 09/15/21 18:30: B-Natriuretic Peptide 37.8 09/15/21 23:45: Magnesium 2.4 09/16/21 05:20: WBC 7.9, RBC 3.48 L, Hgb 10.7 L, Hct 33.4 L, MCV 96.0 H, MCH 30.7, MCHC 32.0, Plt Count 464 H, MPV 9.4, Immature Gran % (Auto) 0.800, Neut % (Auto) 84.5 H, Lymph % (Auto) 10.3 L, [place] % (Auto) 4.3, Eos % (Auto) 0.0, Baso % (Auto) 0.1, Absolute Neuts (auto) 6.7, Nucleated RBC % 0 09/16/21 05:20: PT 29.7 H, INR 2.9 09/16/21 05:20: Sodium 139, Potassium 5.5 H, Chloride 108 H, Carbon Dioxide 28.0, Anion Gap 3 L, BUN 6 L, Creatinine 0.74, Est GFR (MDRD) Af Amer 136, Est GFR (MDRD) Non-Af 112, BUN/Creatinine Ratio 8.1 L, Glucose 178 H, Calcium 8.6, Total Bilirubin 0.60, Triglycerides 73, Cholesterol 123, LDL Cholesterol 81, VLDL Cholesterol 15, HDL Cholesterol 27 L 09/16/21 05:20: Phosphorus 2.5, Magnesium 2.4 Rhythm: EKG: ECHO: Stress Test: Cardiac Cath: PCI: CT Surgery: Holter monitor: EPS: PPM: CXR: Chest CT Scan: Radiography Diagnostic Testing: Radiology Impression Chest X-Ray 09/15/21 18:41 IMPRESSION: Bilateral pneumonia. Electronically Signed: David Perez MD at 19:18 EST Reading Location ID and State: [facility] / [place] , Service support , Echocardiogram 09/16/21 02:06 Interpretation Summary The estimated ejection fraction is 60 %. No evidence for diastolic dysfunction. The left atrium is mildly enlarged. Ordering Physician: Kalina Lazaro Referring Physician: Andrea Singh Performed By: Nikki Segal RDCS, RVT
[2021-09-16] MEDS: Acetaminophen 325 MG Tablet 650 MG PO (20:56)
[2021-09-17] VITALS (9 sets, daily range): BP systolic 127–133; BP diastolic 61–65; PULSE 58–77; RESP 18; TEMP 36.1–36.8; O2SAT 88–99
[2021-09-17 05:54] LABS: Hematocrit 36.1 % (40-54); Hemoglobin 11.3 g/dL (13.0-16.5); Mean Corp Hgb Conc 31.3 g/dL (32-36); Mean Corpuscular Hgb 30.5 pg (27.0-32.0); Mean Corpuscular Volume 97.6 fL (80-94); Mean Platelet Vol. 9.6 fl (6.2-12.0); POSITIVE DIFFERENTIAL YES; Platelet Count 544 K/mm3 (150-450); RBC Distribution Width SD 49.8 fl (35.1-43.9); White Blood Count 20.3 K/mm3 (4.4-11.0)
[2021-09-17 06:25] LABS: International Normalized Ratio 3.1; Prothrombin Time (Protime)PT. 30.9 SECONDS (11.7-14.9)
[2021-09-17 06:26] LABS: Absolute Lymphocyte Count 1.96 X10^3/uL (0.83-4.51); Basophil# 0.02 X10^3/uL; Basophil% 0.1 % (0-1); Eosinophil# 0.02 X10^3/uL; Eosinophils% 0.1 % (0-5); Lymphocyte # 1.96 X10^3/ul (0.83-4.51); Lymphocyte % 9.6 % (19-41); Monocyte# 2.11 X10^3/uL; Monocyte% 10.4 % (0-10); NRBC Flagged by Analyzer 0 % (0-5); Neutrophil # 15.98 X10^3/uL (2.7-7.7); Neutrophil % 78.7 % (47-70)
[2021-09-17 06:27] LABS: Differential Comment SCANNED; Differential Indicated SCAN CRITERIA MET; Pathologist Review May foll
[2021-09-17 06:43] LABS: ALB/GLOB Ratio 0.7 RATIO (0.9-2.4); AST(SGOT) 26 U/L (15-37); Alanine Aminotransfer ALT/SGPT 33 U/L (16-61); Albumin, Serum 2.9 g/dL (3.2-5.0); Alkaline Phosphatase 42 U/L (45-117); Anion Gap 5 (5-15); BUN 14 mg/dL (7-18); BUN/Creat Ratio 16.1 RATIO (10-20); Calcium,Total 8.9 mg/dL (8.5-10.1); Chloride 107 mmol/L (98-107); Creatinine, Serum 0.87 mg/dL (0.70-1.30); EST Glomerular Filtration Rate 94 mL/min (>60); Est Glom Filt Rate - Afr Amer 113 mL/min (>60); Estimated Creatinine Clearance 98.42 ml/min; Globulin 4.4 g/dL (2.2-4.2); Glucose 103 mg/dL (74-106); Potassium 4.4 mmol/L (3.5-5.1); Protein, Total 7.3 g/dL (6.4-8.2); Sodium Level 138 mmol/L (136-145)
[2021-09-17 06:50] LABS: Phosphorus 3.4 mg/dL (2.5-4.9)
--- NOTE | 2021-09-17 07:43 | PCM.DC ---
Discharge Instructions Diet Discharge Diet: No restrictions Activity Discharge Activity: Return to Normal Activity and May Not Drive Dressing / Incision Call your doctor if you observe: Fever of 101 or Higher, Coldness, Increased Pain, Numbness or Tingling, Change in Color, Inability to urinate, Inability to have a bowel movement, Shortness of breath, Dizziness, Fainting spells, Swelling in the ankles, Chest pain, Prolonged hiccupping, Increased palpitations (irregular heartbeat), Calf discomfort and Uncontrolled pain Follow Up Care Test Results: Test results from this visit will be discussed in further detail at your follow-up appointment, if applicable. Discharge Plan Admission Admit Date/Time: 09/15/21 20:58 Primary Reason for Your Visit: Bilateral pneumonia Attending Provider: Erasmo Miller Primary Care Provider: Andrea Singh Consulting Providers: Dereck Cruz Instructions Additional Instructions / Restrictions: Advised outpatient nuclear stress test when he is recovered completely from Covid pneumonia and is on baseline health, to be scheduled by PCP. Discharge Orders/Prescriptions Prescriptions: New cefdinir 300 mg capsule 300 mg PO BID Qty: 10 RF: 0 aspirin 81 mg Tablet,Chewable 81 mg PO BREAKFAST Qty: 30 RF: 1 dexamethasone 6 mg tablet 6 mg PO DAILY Qty: 8 RF: 0 pseudoephedrine-guaifenesin [Mucinex D] 60-600 mg tablet extended release 12 hr 1 tab PO BID Qty: 14 RF: 0 Continued dapsone 100 mg tablet 100 mg PO DAILY RF: 0 warfarin 5 mg tablet 5 mg PO SUTUWETHSA RF: 0 warfarin 2.5 mg Tablet 2.5 mg PO MOFR RF: 0 Referrals / Follow Up: Andrea Singh MD [Primary Care Provider] - Disposition Disposition (needs filled in before D/C Order can be placed): Home, Self Care
--- NOTE | 2021-09-17 07:44 | DS.PCM_ITS ---
Providers Date of Admission: 09/15/21 Date of Discharge: 09/17/21 Primary Care Physician: Dr. Andrea Singh MD Consultations 09/16/21 07:00 Consult: Cardiology Routine Consulting Provider: Dereck Cruz Reason for Consult: Elevated trop, has COVID, out of precautions EMERGENT Consult: No MD Notified: Yes Date Notified: 09/16/21 Time Notified: 08:30 Method of Notification: Text Reason For Visit: COVID PNA, HYPOXIA Diagnosis Discharge Diagnosis (1) Bilateral pneumonia: Status: Acute Code(s): J18.9 - Pneumonia, unspecified organism Qualifiers: Lung location: unspecified part of lung Pneumonia type: due to unspecified organism Qualified Code(s): J18.9 - Pneumonia, unspecified organism (2) COVID-19 virus infection: Status: Acute Code(s): U07.1 - COVID-19 (3) Hypoxia: Status: Acute Code(s): R09.02 - Hypoxemia Medications at Discharge Home Medications dapsone 100 mg PO DAILY 09/15/21 warfarin 2.5 mg PO MOFR 09/15/21 warfarin 5 mg PO SUTUWETHSA 09/15/21 aspirin 81 mg PO BREAKFAST #30 tab 09/17/21 cefdinir 300 mg PO BID #10 cap 09/17/21 dexamethasone 6 mg PO DAILY #8 tab 09/17/21 pseudoephedrine-guaifenesin [Mucinex D] 1 tab PO BID #14 tab 09/17/21 Hospital Course Summary of Care Provided Hospital Course: The patient is a 66 y/o M was admitted with COVID-19 symptoms of shortness of breath, cough, hypoxia, fever and dyspnea at rest in last 1 week. Symptom onset on 08/26-02/2022, tested positive on August 31. Patient had chest x-ray by PCP showed a small pneumonia and low pulse ox cyst hypoxia #1. Acute Hypoxia secondary to Acute Bilateral Pneumonia secondary to Acute Viral Syndrome, COVID-19: Patient is being admitted on [facility] floor. Chest x- ray individually reviewed and shows bilateral interstitial and infiltrates and symptomatology consistent with bilateral pneumonia. Patient has occasional coughs. Urinary antigens are negative. Sputum culture preliminary shows normal respiratory jade. D-dimer normal. INR 2.9 on Coumadin. Troponin, CRP, procalcitonin elevated. Dexamethasone. Out of time window for remdesivir. As chest x-ray showed bilateral interstitial pneumonia although does not have much symptoms but has been more than 3 weeks of symptom onset therefore will treat with antibiotic for total of 7 days. Patient tolerated ceftriaxone for 2 days here without adverse, side effect are not allergic reaction. Most with allergic listed as other and I think it is not true. Discharged on 5 more days of cefdinir. #2. Elevated troponin possible type II demand ischemia/non-STEMI: I discussed with help desk specialist. Patient had echo probably by PCP about 1 to 2 years ago when he had a PE. He was told that he has enlarged/muscular heart probably referring to LVH. 2D echo was done. EF 60% with no evidence of diastolic dysfunction. No R WMA. Patient advised myocardial nuclear perfusion stress test as an outpatient in about 1 month when he is symptom-free and at baseline. 3 autoimmune disorder: Patient states he gets blood blister on the inner aspect of mouth. Exact diagnosis unclear. 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 On chronic dapsone, continued. 4. 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 INR therapeutic. Discharge home drainage of warfarin 5. Obesity: Weight loss and lifestyle changes encouraged. 6. Former tobacco use: Encourage continued tobacco cessation. Discharge medication reconciliation done. Discharge follow-up instructions completed. Discharge process discussed with the patient and all questions were answered to patient's satisfaction. Prescriptions of dexamethasone, cefdinir and Mucinex D sent to patient's preferred pharmacy. Total time spent, exact 35 minutes on discharge meds reconciliation, examination, coordination of care with nurses and ancillary staff, review of imaging and blood test and discussion with the patient on follow-up instructions Physical Exam Narrative Seen and examined Patient did not require oxygen. Walking pulse ox was done and patient not hypoxic. No chest pain or shortness of breath. General: Alert, Oriented x3, Cooperative HEENT: Atraumatic, PERRLA, EOMI, Normocephalic Oral: No Gingival or Mucosal Lesions/ Ulcerations Neck: Supple, No JVD, Negative Carotid Bruits Lungs: Air entry diminished in bilateral lung bases. No crepitation/rhonchi Cardiovascular: Regular rate, Regular Rhythm, Normal S1, Normal S2, no murmur. Abdomen: Bowel Sounds Present, Soft, Non Tender, Non-Distended : No renal angle tenderness. No suprapubic tenderness. Extremities: No edema, Capillary Refill Less than 3 Seconds Skin: No rashes, No breakdown Musculoskeletal: No Tenderness to Palpation of Joints or Extremities Neurological: Cranial nerves II-XII grossly intact, DTR 2+/4 and Symmetrical, Neuro grossly intact Psych/Mental Status: Normal Affect, Appropriate. Weight / BMI Weight Weight: 240 lb 9.6 oz Body Mass Index (BMI) 30.5 ABG / Lab / Microbiology Data Result Diagrams: 09/17/21 05:20 09/17/21 05:20 Laboratory: Laboratory Results - last 24 hr 09/16/21 05:20: Phosphorus 2.5, Magnesium 2.4 09/16/21 16:50: COVID-19 (YEVGENIY) Not Detected 09/17/21 05:20: WBC 20.3 H, RBC 3.70 L, Hgb 11.3 L, Hct 36.1 L, MCV 97.6 H, MCH 30.5, MCHC 31.3 L, RDW Std Deviation 49.8 H, RDW Coeff of Brooke 14.0, Plt Count 544 H, MPV 9.6, Immature Gran % (Auto) 1.100 H, Neut % (Auto) 78.7 H, Lymph % (Auto) 9.6 L, [place] % (Auto) 10.4 H, Eos % (Auto) 0.1, Baso % (Auto) 0.1, Absolute Neuts (auto) 16.0 H, Absolute Lymphs (auto) 1.96, Nucleated RBC % 0, Differential Comment SCANNED, Diff Path Review December09/17/21 05:20: PT 30.9 H, INR 3.1 09/17/21 05:20: Sodium 138, Potassium 4.4, Chloride 107, Carbon Dioxide 26.0, Anion Gap 5, BUN 14, Creatinine 0.87, Estim Creat Clear Calc 98.42, Est GFR (MDRD) Af Amer 113, Est GFR (MDRD) Non-Af 94, BUN/Creatinine Ratio 16.1, Glucose 103, Calcium 8.9, Total Bilirubin 0.70, AST 26, ALT 33, Alkaline Phosphatase 42 L, Total Protein 7.3, Albumin 2.9 L, Globulin 4.4 H, Albumin/Globulin Ratio 0.7 L 09/17/21 05:20: Phosphorus 3.4 Microbiology: Microbiology 09/16/21 02:50 Sputum, Expectorated/Coughed Gram Stain - Final 09/15/21 21:53 Urine, Clean Catch Legionella Antigen - Final 09/15/21 21:53 Urine, Clean Catch Streptococcus pneumoniae Antigen (M - Fi nal Radiography Diagnostic Testing: Radiology Impression Echocardiogram 09/16/21 02:06 Interpretation Summary The estimated ejection fraction is 60 %. No evidence for diastolic dysfunction. The left atrium is mildly enlarged. Ordering Physician: Kalina Lazaro Referring Physician: Andrea Singh Performed By: Nikki Segal, QIAN, RVT Meaningful Use Info Meaningful Use Diagnoses (Choose all that apply): None applicable Discharge Plan Admission Admit Date/Time: 09/15/21 20:58 Primary Reason for Your Visit: Bilateral pneumonia Attending Provider: Erasmo Miller Primary Care Provider: Andrea Singh Consulting Providers: Dereck Cruz Instructions Additional Instructions / Restrictions: Advised outpatient nuclear stress test when he is recovered completely from Covid pneumonia and is on baseline health, to be scheduled by PCP. Discharge Orders/Prescriptions Prescriptions: New cefdinir 300 mg capsule 300 mg PO BID Qty: 10 RF: 0 aspirin 81 mg Tablet,Chewable 81 mg PO BREAKFAST Qty: 30 RF: 1 dexamethasone 6 mg tablet 6 mg PO DAILY Qty: 8 RF: 0 pseudoephedrine-guaifenesin [Mucinex D] 60-600 mg tablet extended release 12 hr 1 tab PO BID Qty: 14 RF: 0 Continued dapsone 100 mg tablet 100 mg PO DAILY RF: 0 warfarin 5 mg tablet 5 mg PO SUTUWETHSA RF: 0 warfarin 2.5 mg Tablet 2.5 mg PO MOFR RF: 0 Referrals / Follow Up: Brown,Andrea, MD [Primary Care Provider] - Disposition Disposition (needs filled in before D/C Order can be placed): Home, Self Care Charges/Coding Visit Charges Inpatient E&M: 12949 Disch Hosp
[2021-09-17] MEDS: Aspirin 81 MG TAB.CHEW PO (08:33)
[2021-09-17] MEDS: dexAMETHasone 4 MG/ML Vial 6 MG IV (08:33)
[2021-09-17] MEDS: 0.9% Saline Lock 10 ML Syringe IV ×2 (08:33→11:26)
== END 2021-09-17 12:39 | disposition home or self-care (01) | DRG 177 ==
LOC: ED 20:07 → MS3 21:13
PROVIDERS: Admitting Provider Family Medicine; Emergency Provider Emergency Medicine; PCP Family Medicine; Visit Provider Internal Medicine
DX: U07.1 COVID-19 (principal); J12.82 Pneumonia due to coronavirus disease 2019; I21.A1 Myocardial infarction type 2; J15.9 Unspecified bacterial pneumonia; Z87.891 Personal history of nicotine dependence; R09.02 Hypoxemia; Z79.01 Long term (current) use of anticoagulants; Z86.718 Personal history of other venous thrombosis and embolism; E66.9 Obesity, unspecified; Z68.30 Body mass index [BMI] 30.0-30.9, adult
CPT/HCPCS: 36415; 71046; 80053; 80061; 82728; 83605; 83615; 83735; 83880; 84100; 84145; 84484; 85025; 85379; 85610; 86140; 87070; 87205; 87449; 87635; 93005; 93306; 94667; 94762; 99251; 99285; J7030; J7040; A4216; G0463; J0696; U0003; U0005

== ENCOUNTER → 2024-03-22 | Outpatient (CLI) | payer MEDICARE, OTHER, SELFPAY ==
--- NOTE | 2024-03-22 07:51 | CT_ITS ---
STUDY: CT SOFT TISSUE NECK WITHOUT CONTRAST REASON FOR EXAM: Male, 68 years old. Left-sided TONSIL MASS RADIATION DOSAGE (If Supplied By Facility): CTDIvol = ( 19.68 ) mGy, DLP = ( 668.83 ) mGycm TECHNIQUE: The patient was scanned in a multi-detector CT scanner. High resolution transaxial imaging was performed without the administration of intravenous contrast material. Sagittal and coronal images were reconstructed. Individualized dose optimization techniques were used for this CT. COMPARISON: None. FINDINGS: Normal bilateral parotid glands. Normal bilateral rewinder spaces. Normal bilateral parapharyngeal spaces. Normal bilateral carotid spaces. Normal bilateral sublingual and submandibular glands and spaces. Normal visualized nasopharynx. Normal retropharyngeal space. Normal perivertebral space. There is evidence of a 2.3 cm x 1.9 cm soft tissue mass in the left side of the tonsils. This corresponds to the clinical findings. The visualized tongue, tongue base and oropharynx are normal. There are minimally enlarged lymph nodes of the neck, with preservation of normal jin architecture, consistent with a reactive lymph hyperplasia. There is no demonstrated solid or cystic mass lesion. Normal epiglottis, bilateral vallecula and hypopharynx. The pre-epiglottic and paraglottic adipose spaces are normal. Normal visualized bilateral piriform sinuses, aryepiglottic folds, vocal cords, and arytenoid-cricoid articulations. Normal subglottic trachea. There is a 2 cm x 1.2 cm nodule in the lower aspect of the left lobe of the thyroid. Focal calcification also seen in the anterior aspect of the right lobe of the thyroid. Normal visualized pulmonary apices. Normal visualized paranasal sinuses. There is multilevel degenerative changes of the cervical spine. Atherosclerotic plaque formation of the carotid bifurcations. Small bilateral thyroid nodules. CT/Soft Tissue Neck without Contr IMPRESSION: 2.3 cm x 1.8 cm mass in the left tonsils. Small lymph nodes are seen in the cervical region. Electronically Signed: Jamal Riley MD at 14:50 EDT ,
== END | disposition home or self-care (01) ==
PROVIDERS: PCP Family Medicine; Referring Provider Otolaryngology; Visit Provider Otolaryngology
DX: R22.1 Localized swelling, mass and lump, neck (principal)
CPT/HCPCS: 70490

== ENCOUNTER → 2024-03-29 | Outpatient (CLI) | payer MEDICARE, OTHER, SELFPAY ==
--- NOTE | 2024-03-29 12:20 | US_ITS ---
STUDY: THYROID ULTRASOUND REASON FOR EXAM: Male, 68 years old. Nontoxic single thyroid nodule TECHNIQUE: Ultrasound evaluation of the thyroid was performed with real-time and static garcia-scale imaging. COMPARISON: None. FINDINGS: RIGHT LOBE: The right lobe of the thyroid gland measures 5.5 x 1.3 x 2.0 cm. There is a homogeneous echotexture. There are multiple tiny (less than 5 mm) hypoechoic nodules consistent with adenomas. LEFT LOBE: The left lobe of the thyroid gland measures 3.7 x 1.8 x 2.2 cm. There is a homogeneous echotexture. Nodule 1:7 x 4 x 7 mm solid hypoechoic wider than tall smoothly marginated nodule with peripheral calcifications (TR 4) in the inferior left lobe consistent with an adenoma. ISTHMUS: The isthmus measures 3 mm. The regional lymph nodes are normal. US/Thyroid IMPRESSION: Multiple small adenomas but no dominant nodule. Electronically Signed: Humberto Haley MD at 22:10 EDT ,
== END | disposition home or self-care (01) ==
LOC: US 12:19
PROVIDERS: PCP Family Medicine; Referring Provider Otolaryngology; Visit Provider Otolaryngology
DX: E04.1 Nontoxic single thyroid nodule (principal)
CPT/HCPCS: 76536

== ENCOUNTER → 2024-04-02 | Outpatient (CLI) | payer MEDICARE, OTHER, SELFPAY ==
--- NOTE | 2024-04-02 12:03 | EKG12_ITS ---
Test Reason : PREOP Blood Pressure : / mmHG Vent. Rate : 073 BPM Atrial Rate : 073 BPM P-R Int : 180 ms QRS Dur : 082 ms QT Int : 394 ms P-R-T Axes : 057 009 049 degrees QTc Int : 434 ms Normal sinus rhythm Normal ECG Confirmed by RONI WHITE, PARVIZ ([id number]), editorial writer RUMA OHUGH ([id number]) on 04/03/2024 9:31:54 AM Referred By: Nick Blanco Confirmed By:PARVIZ TAMAYO MD
[2024-04-02 12:53] LABS: Hemoglobin 14.3 g/dL (13.0-16.5); Mean Corp Hgb Conc 33.3 g/dL (32-36); Mean Corpuscular Hgb 30.1 pg (27.0-32.0); Mean Corpuscular Volume 90.5 fL (80-94); Mean Platelet Vol. 9.3 fl (6.2-12.0); Platelet Count 176 K/mm3 (150-450); RBC Distribution Width CV 13.4 % (11.6-14.6); RBC Distribution Width SD 44.9 fl (35.1-43.9); Red Blood Count 4.75 M/mm3 (4.6-6.2); White Blood Count 8.7 K/mm3 (4.4-11.0)
[2024-04-02 13:29] LABS: Anion Gap 6 (5-15); BUN 14 mg/dL (7-18); BUN/Creat Ratio 14.2 RATIO (10-20); Calcium,Total 8.9 mg/dL (8.5-10.1); Chloride 107 mmol/L (98-107); Creatinine, Serum 0.99 mg/dL (0.70-1.30); EST Glomerular Filtration Rate 80 mL/min (>60); Est Glom Filt Rate - Afr Amer 97 mL/min (>60); Glucose 123 mg/dL (74-106); Potassium 4.3 mmol/L (3.5-5.1); Sodium Level 140 mmol/L (136-145)
== END | disposition home or self-care (01) ==
LOC: PSN 12:02
PROVIDERS: PCP Family Medicine; Referring Provider Otolaryngology; Visit Provider Otolaryngology
DX: Z01.818 Encounter for other preprocedural examination (principal)
CPT/HCPCS: 36415; 80048; 85027; 93005

== ENCOUNTER → 2024-04-30 | Outpatient (CLI) | payer MEDICARE, OTHER, SELFPAY ==
--- NOTE | 2024-04-30 | MASS_PTH ---
PATIENT: RAKESH ROBERSON LOC: [facility] U#:[id number] AGE/SX: 68/M ROOM: RE04/30/[address]: Dr. Nick Blanco MD : 1955 BED: DIS: 04/30/2024 SPEC #: [id number] RECD: 04/30/24 15:06 STATUS: MAIKEL SOLIZ #: [id number] [place]: 04/30/24 00:[address]: Nick Blanco DEPT: SURGICAL PATHOLOGY RECD BY: Emilio Bueno ENTERED: 05/01/24 07:56 SP TYPE: Mass OTHR DR: Dr. Andrea Singh MD 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 See comment. LILY/ 05/03/2024 COMMENT Immunohistochemistry ([id number]) supports the above diagnosis. Case has been reviewed in consultation with Dr. Anguiano who concurs with the above diagnosis. IDC:AM MICROSCOPIC DESCRIPTION Slides are reviewed. GROSS DESCRIPTION Received in fixative is one container labeled with the patient's name and designated Oropharyngeal mass. The specimen consists of a de souza mucosal tissue with underlying mass measuring 3.5 x 1.5 x 2.5cm. The specimen is inked, serially sectioned and reveals solid cut surfaces with focal cystic areas. The entire specimen is submitted in seven cassettes from one end to the other end. 05/01/2024 TC:0 CPT:38269 ADDENDUM ADDENDUM ADDENDUM ADDENDUM ADDENDUM ADDENDUM ADDENDUM ADDENDUM ADDENDUM ADDENDUM ADDENDUM ADDENDUM ADDENDUM ADDENDUM ADDENDUM ADDENDUM 06/07/2024 08:35 ADDENDUM 06/07/2024 08:35 ADDENDUM 06/07/2024 08:35 ADDENDUM 06/07/2024 08:35 ADDENDUM 06/07/2024 08:35 This addendum is added to incorporate an outside pathology consultation report. The case was examined at [facility] (#[id number]) and the following diagnosis was rendered. Oropharyngeal mass, excisional biopsy: Involved by mantle cell lymphoma, classic variant. See comment. COMMENT: This is a 68-year old male with a recent diagnosis of mantle cell lymphoma. In summary, the morphology and immunophenotype support the diagnosis of mantle cell lymphoma classic variant. Clinical correlation is suggested. Please see complete above mentioned consultation report in EMR
--- NOTE | 2024-04-30 | IMM_PTH ---
PATIENT: RAKESH ROBERSON LOC: [facility] U#:[id number] AGE/SX: 68/M ROOM: RE04/30/[address]: Dr. Nick Blanco MD : 1955 BED: DIS: 04/30/2024 SPEC #: [id number] RECD: 05/02/24 11:46 STATUS: MAIKEL REQ #: [id number] [place]: 04/30/24 00:[address]: Nick Blanco DEPT: IMMUNOHISTOCHEMISTRY RECD BY: Bryon Schmidt ENTERED: 05/02/24 11:47 SP TYPE: IMMUNO OTHR DR: Dr. Andrea Singh MD Tissues: Oropharynx, NOS Procedures: BCL-2 (add) BCL-6 (add) CD10 (add) CD20 (add) CD23 (add) CD3 (add) CD43 (add) CD45 (add) CD5 (add) CD79A (add) CK8 (add) CYCLIN (add) KI-67 (add) Pankeratin (initial) PHYSICIAN & [address] [id number] SPECIMEN INFORMATION: Tissue Source: Oropharyngeal mass Clinical Info: Neoplasm of uncertain behavior of pharynx Specimen Number: [id number] CPT code: 23737,[id number] METHODOLOGY: Deparaffinized sections of prefer/formalin-fixed tissue or PAP/DQ stained slides are incubated with monoclonal/polyclonal antibodies/oligonucleotide probes. Localization is made via biotin free immunoperoxidase method. Appropriate controls are performed and reacted as expected. Results on target cell population are indicated in the following table: RESULTS: ANTIBODY / CLONE RESULT Block 2 AE1-3 (AE1/AE3/PCK26) negative CK8 ([id number]) negative CD3 (PS1) negative CD5 (SP10) positive CD20 (L26) positive CD43 (L60) positive CD45 (RP2/18) positive CD79a (11E3) positive CD10 (56C6) negative CD23 (1B12) negative BCL-2 (bcl-2/100/D5) positive BCL-6 (NR991C/A8) negative Cyclin D1/BCL-1 (SP4) positive Ki-67 (30-9) positive, ~30% These tests were developed and their performance characteristics determined by [facility]. They may not have been cleared or approved by the [place]. Food and Drug Administration. The FDA has determined that such clearance or approval is not necessary. The above immunohistochemical/dualISH markers are ordered and reviewed by the Pathologist. INTERPRETATION: Oropharyngeal mass, excision: Tonsillar tissue with focal involvement with Non-Hodgkin lymphoma B-cell lymphoma, Mantle cell lymphoma. Case has been reviewed in consultation with Dr. Anguiano who concurs with the above diagnosis. IDC:RUBIA BAUTISTA/ 05/03/2024
== END | disposition home or self-care (01) ==
LOC: LABSPEC 15:38
PROVIDERS: PCP Family Medicine; Referring Provider Otolaryngology; Visit Provider Otolaryngology
DX: D37.05 Neoplasm of uncertain behavior of pharynx (principal)
CPT/HCPCS: 88304; 88341; 88342